=== PATIENT | female | born 1990 | race African-American/Black ===

== ENCOUNTER → 2020-07-20 | Outpatient (CLI) | payer BC, MEDICAID ==
[~2020-07-20] MED LIST: ONDA8TAB9 PO
--- NOTE | 2020-07-20 14:36 | Diagnostic Imaging Report ---
PROCEDURE: US Thyroid. TECHNIQUE: Multiple real-time grayscale images were obtained of the thyroid in various projections. INDICATION: Hyperthyroidism, low TSH. COMPARISON: None available. FINDINGS: Right thyroid lobe: The right thyroid lobe measures 4.6 x 1.7 x 1.3 cm. There is a background of normal homogeneous echogenicity and vascularity. In the lower pole, there is a well-circumscribed, wider than tall, no associated echogenic foci and hypoechoic solid nodule measuring 1.4 x 1.4 x 0.9 cm. Isthmus: The thyroid isthmus measures 0.6 cm and is without nodule. Left thyroid lobe: The left thyroid lobe measures 5.6 x 3.3 x 3.8 cm. Almost entirety of the left thyroid is occupied by a large, almost entirely solid nodule that measures at least 5.6 cm in size, is isoechoic and has no echogenic foci. IMPRESSION: 1. Very large left thyroid nodule occupies the entire left thyroid lobe (TI-RADS 3). Given the large size, FNA of the left thyroid nodule is recommended. 2. Moderately suspicious nodule in the lower pole of the right thyroid (TI-RADS 4) should be followed with ultrasound in one year time to assess stability. ACR TI-RADS: TR4 . TI-RADS Recommendations:TR4 - Moderately Suspicious:FNA if >1.5 cm; Follow if > 1.0 cm at 1, 2, 3 and 5 years. Dictated by: Dictated on workstation # [id number]
== END ==
LOC: RAD 08:06
PROVIDERS: ATTEND Nurse Practitioner Family
DX: E05.90 Thyrotoxicosis, unspecified without thyrotoxic crisis or storm (principal); E04.1 Nontoxic single thyroid nodule
CPT/HCPCS: 76536